=== PATIENT | female | born 1975 | race Caucasian/White ===

== ENCOUNTER 2020-07-13 18:36 | Emergency (ER) | payer OTHER ==
[2020-07-13 19:33] VITALS: BP 162/89
== END 2020-07-13 19:33 | disposition left against medical advice (07) | DRG 951 ==
LOC: ED 18:36
DX: Z04.89 Encounter for examination and observation for other specified reasons (principal); F17.200 Nicotine dependence, unspecified, uncomplicated; Z91.19 Patient's noncompliance with other medical treatment and regimen